=== PATIENT | female | born 1975 | race Caucasian/White ===

== ENCOUNTER 2022-02-23 06:13 | Observation (INO) ==
[2022-02-23] MEDS ORDERED: ANCEF VIAL 1 GRAM IVP ONE (06:37)
[2022-02-23] MEDS ORDERED: NS 100 ML IV 100 ML ONE (06:39)
[2022-02-23] MEDS ORDERED: ANCEF VIAL 1 GRAM ONE (06:39)
[2022-02-23] MEDS ORDERED: D5 1/2 NS 1,000 ML 1,000 ML IV ONE ×2 (06:40→09:58)
[2022-02-23] MEDS ORDERED: PRECEDEX INJ VIAL IVP ONE (06:57)
[2022-02-23] MEDS ORDERED: ZOFRAN INJ 4 MG VIAL ONE (06:57)
[2022-02-23] MEDS ORDERED: DIPRIVAN VIAL 20 ML ONE (06:57)
[2022-02-23] MEDS ORDERED: ZEMURON 100 MG VIAL ONE (06:57)
[2022-02-23] MEDS ORDERED: MAGNESIUM SULFATE 50% INJ VIAL ONE (06:57)
[2022-02-23] MEDS ORDERED: PEPCID 20 MG VIAL ONE (06:57)
[2022-02-23] MEDS ORDERED: DECADRON INJ ONE (06:57)
[2022-02-23] MEDS ORDERED: VERSED ONE (07:01)
[2022-02-23 07:05] VITALS: BMI 29.3
[2022-02-23] MEDS ORDERED: MARCAINE SPINAL ONE (07:15)
[2022-02-23] MEDS ORDERED: DILAUDID INJ ONE (07:16)
[2022-02-23] MEDS ORDERED: BETADINE SOLN ONE (07:19)
[2022-02-23] MEDS ORDERED: VASOSTRICT INJ 20 UNITS VIAL ONE (07:26)
[2022-02-23] MEDS ORDERED: KETAMINE HCL ONE (07:30)
[2022-02-23] MEDS ORDERED: SUPRANE ONE (07:30)
[2022-02-23] MEDS ORDERED: XYLOCAINE 2 % (PLAIN) ONE (07:36)
[2022-02-23] MEDS ORDERED: LR 1,000 ML IV 1,000 ML IV ONE (07:46)
[2022-02-23] MEDS ORDERED: BRIDION ONE (09:22)
[2022-02-23] MEDS ORDERED: DILAUDID INJ IVP PRN (09:36)
[2022-02-23] MEDS ORDERED: BARHEMSYS INJ IVP PRN (09:36)
[2022-02-23] MEDS ORDERED: BENADRYL INJ 50 MG VIAL IVP PRN ×2 (09:36→10:23)
[2022-02-23] MEDS ORDERED: REGLAN INJ 10 MG VIAL IVP PRN ×2 (09:36→10:23)
[2022-02-23] MEDS ORDERED: ZOFRAN INJ 4 MG VIAL IVP PRN ×3 (09:36→10:23)
[2022-02-23] MEDS ORDERED: PERCOCET TAB 5/325 MG PO PRN ×2 (10:23→16:55)
[2022-02-23] MEDS ORDERED: TORADOL 30 MG VIAL IVP PRN (10:23)
[2022-02-23] MEDS ORDERED: NARCAN INJ IVP PRN (10:23)
[2022-02-23] MEDS: TORADOL 30 MG VIAL IVP PRN ×3 (10:37→23:21)
[2022-02-23] MEDS: D5 1/2 NS 1,000 ML 1,000 ML IV SCH ×4 (10:58→17:30)
[2022-02-23] MEDS: BENADRYL INJ 50 MG VIAL IVP PRN ×2 (11:26→21:33)
[2022-02-23] MEDS ORDERED: NS IRRIGATION* 500 ML IR ONE (15:21)
[2022-02-23] MEDS: COLACE CAP 100 MG PO SCH (20:08)
[2022-02-23] MEDS: MILK OF MAGNESIA PO SCH (20:08)
[2022-02-24] MEDS: D5 1/2 NS 1,000 ML 1,000 ML IV SCH ×2 (02:00→07:16)
[2022-02-24 05:12] LABS: BASOPHILS # (AUTO) 0.1 X10^3/uL (0.0-0.1); BASOPHILS % (AUTO) 0.6 % (0.2-1.0); EOSINOPHILS % (AUTO) 0.2 % (0.9-2.9); HEMOGLOBIN 11.3 g/dL (12.0-16.0); LYMPHOCYTES # (AUTO) 2.2 X10^3/uL (1.3-2.9); LYMPHOCYTES % (AUTO) 12.5 % (21.0-51.0); MEAN CORPUSCULAR HEMOGLOBIN 30.7 pg (27.0-34.0); MEAN CORPUSCULAR HGB CONC 34.4 g/dL (33.0-35.0); MEAN CORPUSCULAR VOLUME 89.2 fL (80.0-100.0); MEAN PLATELET VOLUME 8.3 fL (7.4-11.0); MONOCYTES # (AUTO) 1.2 x10^3/uL (0.3-0.8); MONOCYTES % (AUTO) 7.1 % (0.0-13.0); NEUTROPHILS # (AUTO) 13.8 x10^3/uL (2.2-4.8); NEUTROPHILS % (AUTO) 79.6 % (42.0-75.0); RED CELL DISTRIBUTION WIDTH 13.5 % (11.6-16.5); WHITE BLOOD COUNT 17.3 X10^3/uL (3.6-10.0)
[2022-02-24 05:19] LABS: BLOOD UREA NITROGEN 6 mg/dL (7-18); CALCIUM 7.5 mg/dL (8.5-10.1); CARBON DIOXIDE 25.5 mmol/L (21-32); CHLORIDE 107 mmol/L (98-107); COR NA(FOR HYPERGLY) 141 mmol/L (136-145); CREATININE 0.72 mg/dL (0.55-1.02); SODIUM 140 mmol/L (136-145); eGFR NON BLACK RACES > 60 (>60)
[2022-02-24 08:19] VITALS: BP 124/72
[2022-02-24] MEDS: COLACE CAP 100 MG PO SCH (08:28)
[2022-02-24] MEDS: MILK OF MAGNESIA PO SCH (08:28)
== END 2022-02-24 09:05 | disposition home or self-care (01) ==
LOC: MED/SURG 06:13 → INTOOBSV 06:13
PROVIDERS: ADMIT Specialist; ATTEND Specialist
DX: R10.2 Pelvic and perineal pain; N83.292 Other ovarian cyst, left side; R89.6 Abnormal cytological findings in specimens from other organs, systems and tissues; N83.291 Other ovarian cyst, right side